=== PATIENT | female | born 1955 | race Two or more races ===

== ENCOUNTER 2018-08-26 13:05 | Emergency (ER) | payer OTHER ==
[2018-08-26 14:51] VITALS: BP 171/88
--- NOTE | 2018-08-26 15:10 | UC ---
Lower Extremity/Ankle HPI - HPI Summary HPI Summary: Patient fell and tripped injuring her left great toe, pain on the top of the toe , hard to bear weight or move the toe - History of Current Complaint Chief Complaint: UCLowerExtremity Stated Complaint: LEFT GREAT TOE INJURY Time Seen by Provider: 08/26/18 14:36 Hx Obtained From: Patient ?: No Onset/Duration: Sudden Onset, Lasting Days Severity Initially: Moderate Severity Currently: Moderate Pain Intensity: 4 Aggravating Factor(s): Standing, Ambulation Alleviating Factor(s): Rest - Allergies/Home Medications Allergies/Adverse Reactions: Allergies Allergy/AdvReac Type Severity Reaction Status Date / Time No Known Allergies Allergy Verified 08/26/18 14:46 Home Medications: Home Medications Cholecalciferol TAB* [Vitamin D TAB*] 1,000 unit PO DAILY 08/26/18 [History Confirmed 08/26/18] Cyanocobalamin TAB* [Vitamin B12 TAB*] 500 mcg PO DAILY 08/26/18 [History Confirmed 08/26/18] Ibuprofen TAB* [Advil TAB*] 200 mg PO Q6H PRN 08/26/18 [History Confirmed ] PMH/Surg Hx/FS Hx/Imm Hx Previously Healthy: Yes - Surgical History Surgical History: Yes Surgery Procedure, Year, and Place: ? Left or Right Bunionectomy, ~1988, [place]; [facility], 1984 1982 1980 - Family History Known Family History: Positive: Hypertension - Social History Alcohol Use: Occasionally Substance Use Type: None Smoking Status (MU): Former Smoker Length of Time of Smoking/Using Tobacco: 1/2 PPD x 40 Years When Did the Patient Quit Smoking/Using Tobacco: 2011 Review of Systems All Other Systems Reviewed And Are Negative: Yes Constitutional: Positive: Negative Skin: Positive: Negative Eyes: Positive: Negative ENT: Positive: Negative Respiratory: Positive: Negative Cardiovascular: Positive: Negative Gastrointestinal: Positive: Negative Genitourinary: Positive: Negative Motor: Positive: Negative Neurovascular: Positive: Negative Musculoskeletal: Positive: Arthralgia, Edema, Myalgia Neurological: Positive: Negative Psychological: Positive: Negative Is Patient Immunocompromised?: No Physical Exam Triage Information Reviewed: Yes Appearance: Well-Appearing, Well-Nourished, Pain Distress Vital Signs: Initial Vital Signs Temp 98.7 F 08/26/18 14:43 Pulse 72 08/26/18 14:43 Resp 18 08/26/18 14:43 BP 171/88 08/26/18 14:43 Pulse Ox 99 08/26/18 14:43 Vital Signs Reviewed: Yes Eye Exam: Normal ENT Exam: Normal Dental Exam: Normal Neck exam: Normal Respiratory Exam: Normal Cardiovascular Exam: Normal Abdominal Exam: Normal Bowel Sounds: Positive: Present Musculoskeletal: Positive: Strength Limited @, ROM Limited @ - in ext and flex of foot, Edema @ - mild edema of the toe Neurological Exam: Normal Psychological Exam: Normal Skin Exam: Normal Lower Extremity Course/Dx - Course Course Of Treatment: hx obtained, exam performed ,meds reviewed xray obtained positive non displaced fracture of the toe noted. post op shoe and crutches given, referral to Dr Esteban also recommended. - Differential Dx/Diagnosis Differential Diagnosis/HQI/PQRI: Contusion, Fracture (Closed), Sprain, Strain Provider Diagnosis: Nondisplaced fracture of great toe Discharge - Sign-Out/Discharge Documenting (check all that apply): Patient Departure All imaging exams completed and their final reports reviewed: Yes - Discharge Plan Condition: Stable Disposition: HOME Patient Education Materials: Toe Fracture (ED) Referrals: Jerry Jordan MD [Primary Care Provider] - Additional Instructions: 1. use the crutches and do not use the foot to propel [facility]. [facility] appointment with dr Esteban. 3. Use the post op shoe for support and protection. 4. Warm water soaks 5. ibuprofen for pain and fever. - Billing Disposition and Condition Condition: STABLE Disposition: Home
== END 2018-08-26 16:10 | disposition home or self-care (01) ==
LOC: UCCORT 13:05
DX: S92.405A Nondisplaced unspecified fracture of left great toe, initial encounter for closed fracture (principal); Z87.891 Personal history of nicotine dependence; W01.0XXA Fall on same level from slipping, tripping and stumbling without subsequent striking against object, initial encounter; Y92.9 Unspecified place or not applicable
CPT/HCPCS: 99213; G0463

== ENCOUNTER 2018-12-29 15:16 | Emergency (ER) | payer OTHER ==
--- OUTSIDE RECORDS SUMMARY | 2018-12-29 15:23 | XMS REPORT | Continuity of Care Document ---
:1955 External Reference #:[id number] Author Name CHASIDY Funk (transmitted by agent of provider Sue Lee) Address [address] [place] [address] Care Team Providers Name Role Phone Arvind Diaz MD - Internal Care Team Information Insurance Checker Medicine Jerry Jordan MD - Family Care Team Information Insurance Checker Medicine Problems Active Problems Provider Date Tobacco user Onset: 03/10/2011 Hyperlipidemia Onset: 03/10/2011 Depressive disorder Onset: 03/10/2011 Anxiety state Onset: 03/10/2011 Hearing loss Onset: 03/10/2011 Postmenopausal state Onset: 03/10/2011 Essential hypertension CHASIDY Funk Onset: 10/01/2018 Noncompliance with treatment CHASIDY Funk Onset: 10/01/2018 Social History Type Date Description Comments Sex Unknown ETOH Use Occasionally consumes alcohol Tobacco Use Start: Unknown End: Patient is a former smoker Unknown Recreational Drug Use Never Used Drugs Smoking Status Reviewed: 10/17/18 Patient is a former smoker Exercise Type/Frequency Exercises sporadically Allergies, Adverse Reactions, Alerts Description No Known Drug Allergies Medications Active Medications SIG Qnty Indications Ordering Provider Date Pravastatin Sodium one half tablet 15tabs Jerry 10/20/2018 10mg teja Jordan MD Tablets Zestoretic one pill daily 90tabs I10 09/26/2018 20-12.5mg MD Nikki Tablets Vitamin D-3 1 by mouth every 90caps Jerry 11/01/2017 1000Unit day MD Nikki Capsules Vitamin B-12 1 by mouth every 30tabs Jerry 11/01/2017 500mcg day MD Nikki Tablets History Medications Rosuvastatin Calcium take 1 tablet 90tabs E78.5 Jerry Jordan, 2018 - by mouth every MD 10/20/2018 10mg Tablets night at bedtime Immunizations CPT Code Status Date Vaccine Lot # [id number] Given 02/19/2009 Tdap - Tetanus/Diptheria/Acellular Pertussis Vital Signs Date Vital Result Comment 12/15/2018 7:58am Weight 152.19 lb BP Systolic Sitting 130 mmHg BP Diastolic Sitting 80 mmHg 10/13/2018 8:14am Weight 152.56 lb BP Systolic Sitting 110 mmHg BP Diastolic Sitting 60 mmHg Results Test Date Facility Test Result H/L Range Note Basic Metabolic 07/01/2018 [facility] Sodium 139 mmol/L Normal 135-145 [address] [place] [address] [phone] Potassium 4.5 mmol/L Normal 3.5-5.0 Chloride 106 mmol/L Normal 101-111 Co2 Carbon Dioxide 27 mmol/L Normal 22-32 Anion Gap 6 mmol/L Normal 2-11 Glucose 91 mg/dL Normal 70-100 Blood Urea Nitrogen 15 mg/dL Normal 6-24 Creatinine 0.68 mg/dL Normal 0.51-0.95 BUN/Creatinine Ratio 22.1 High 8-20 Calcium 9.3 mg/dL Normal 8.6-10.3 Egfr Non- 88.0 >60 Egfr 106.4 >60 1 Lipid Profile 07/01/2018 [facility] Triglycerides 123 mg/dL 2 (Trig/Chol/HDL) [address] [place] [address] [phone] Cholesterol 263 mg/dL 3 HDL Cholesterol 79.2 mg/dL 4 LDL Cholesterol 159 mg/dL 5 Liver Function 07/01/2018 [facility] Total Protein 6.5 g/dL Normal 6.4-8.9 [address] [place] [address] [phone] Albumin 4.1 g/dL Normal 3.2-5.2 Globulin 2.4 g/dL Normal 2-4 Albumin/Globulin Ratio 1.7 Normal 1-3 Total Bilirubin 0.30 mg/dL Normal 0.2-1.0 Direct Bilirubin 0.00 mg/dL Low 0.03-0.18 Alkaline Phosphatase 78 U/L Normal 34-104 Alt 20 U/L Normal 7-52 Ast 15 U/L Normal 13-39 1 Because ethnic data is not always readily available, this report includes an eGFR for both -Americans and non- Americans. The National Kidney Disease Education Program (NKDEP) does not endorse the use of the MDRD equation for patients that are not between the ages of 18 and 70, are , have extremes of body size, muscle mass, or nutritional status, or are non- or non-. According to the National Kidney Foundation, irrespective of diagnosis, the stage of the disease is based on the level of kidney function: Stage Description GFR(mL/min/1.73 m(2)) 1 Kidney damage with normal or decreased GFR 90 2 Kidney damage with mild decrease in GFR 60-89 3 Moderate decrease in GFR 30-59 4 Severe decrease in GFR 15-29 5 Kidney failure <15 (or dialysis) 2 Desirable: <150 Borderline High: 150-199 High: 200-499 Very High: >500 3 Desirable: <200 Borderline High: 200-239 High: >239 4 Low: <40 Desirable: 40-60 High: >60 5 Desirable: <100 Near Optimal: 100-129 Borderline High: 130-159 High: 160-189 Very High: >189 Procedures Date Code Description Status 09/26/2018 85825 EKG Tracing & Interpretation Completed 09/26/2018 55946 Rad Exam; Toes Completed 08/07/2018 [id number] Mammogram Completed 07/03/2016 [id number] Mammogram Completed 01/30/2014 [id number] Colonoscopy Completed 01/27/2014 [id number] Diabetic Retinal Eye Exam Completed Medical Devices Description No Information Available Encounters Type Date Location Provider Dx Diagnosis Office Visit 10/13/2018 [facility] CHASIDY Funk E78.5 Hyperlipidemia, 8:15a unspecified Office Visit 09/26/2018 [facility] CHASIDY Funk I10 Essential ( primary) 3:15p hypertension E78.5 Hyperlipidemia, unspecified Office Visit 09/26/2018 8:30a Orthopedic Geovani Amos S92.415D Nondisp fx of Services Of Jeremias Esteban MD prox phalanx of AT [place] l great toe, 7thD Office Visit 08/28/2018 10:15a Orthopedic Geovani Amos S92.415A Nondisp fx of Services Of [facility] MD Carlito proximal AT [place] phalanx of left great toe, init Office Visit 06/26/2018 3:30p [facility] CHASIDY Funk Z00.01 Encounter for general adult medical exam w abnormal findings Z12.31 Encntr screen mammogram for malignant neoplasm of breast E78.5 Hyperlipidemia, unspecified M54.5 Low back pain Z01.419 Encntr for nurse obgyn exam (general) (routine) w/o abn findings Assessments Date Code Description Provider 10/13/2018 E78.5 Hyperlipidemia, unspecified CHASIDY Funk 09/26/2018 I10 Essential (primary) hypertension CHASIDY Funk 09/26/2018 S92.415D Nondisplaced fracture of proximal phalanx of Geovani Esteban MD left great toe, 09/26/2018 E78.5 Hyperlipidemia, unspecified CHASIDY Funk 08/28/2018 S92.415A Nondisplaced fracture of proximal phalanx of Geovani Esteban MD left great toe, 06/26/2018 Z00.01 Encounter for general adult medical CHASIDY Funk examination with abnorma 06/26/2018 Z12.31 Encounter for screening mammogram for CHASIDY Funk malignant neoplasm of 06/26/2018 E78.5 Hyperlipidemia, unspecified CHASIDY Funk 06/26/2018 M54.5 Low back pain CHASIDY Funk 06/26/2018 Z01.419 Encntr for nurse obgyn exam (general) (routine) w/o CHASIDY Funk abn findings Plan of Treatment Future Appointment(s):03/19/2019 8:00 am - CHASIDY Funk at [facility] 3:30 pm - CHASIDY Funk at [facility] Functional Status Functional Condition Comment Date Status Trifocal Glasses Active Mental Status Description No Information Available Referrals Description No Information Available
[2018-12-29 16:04] VITALS: BP 139/64
--- NOTE | 2018-12-29 16:27 | UC ---
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 Now the toe is red, swollen, and painful." -sx at toenail and mostly at distal toe. thinks it is an ingrown toenail. very sensitive. no dc. - History of Current Complaint Chief Complaint: UCSkin Stated Complaint: LEFT BIG TOE CONCERN Time Seen by Provider: 12/29/18 16:12 Pain Intensity: 6 - Allergies/Home Medications Allergies/Adverse Reactions: Allergies Allergy/AdvReac Type Severity Reaction Status Date / Time No Known Allergies Allergy Verified 12/29/18 16:05 Home Medications: Home Medications Lisinopril/HCTZ 10/12.5(NF) [Zestoretic 10/12.5(NF)] 1 tab PO DAILY 12/29/18 [ History Confirmed 12/29/18] Simvastatin [Zocor 5 MG-] 5 mg PO DAILY 12/29/18 [History Confirmed 12/29/18] PMH/Surg Hx/FS Hx/Imm Hx Previously Healthy: Yes Cardiovascular History: Hypertension - Surgical History Surgical History: Yes Surgery Procedure, Year, and Place: ? Left or Right Bunionectomy, ~1988[place], [place]; [facility], 1984 1981 1980 - Family History Known Family History: Positive: Hypertension - Social History Alcohol Use: Occasionally Substance Use Type: None Smoking Status (MU): Former Smoker Length of Time of Smoking/Using Tobacco: 1/2 PPD x 40 Years When Did the Patient Quit Smoking/Using Tobacco: 2011 Review of Systems All Other Systems Reviewed And Are Negative: Yes Constitutional: Positive: Negative. Negative: Fever, Chills, Fatigue Skin: Positive: Other ENT: Positive: Negative Respiratory: Positive: Negative Cardiovascular: Positive: Negative Gastrointestinal: Positive: Negative. Negative: Vomiting, Diarrhea, Nausea Genitourinary: Positive: Negative Motor: Positive: Negative Neurovascular: Positive: Negative Musculoskeletal: Positive: Negative Neurological: Positive: Negative Psychological: Positive: Negative Is Patient Immunocompromised?: No Physical Exam Triage Information Reviewed: Yes Appearance: Well-Appearing, No Pain Distress, Well-Nourished - very pleasant Vital Signs: Initial Vital Signs Temp 98.3 F 12/29/18 16:00 Pulse 75 12/29/18 16:00 Resp 16 12/29/18 16:00 BP 139/64 12/29/18 16:00 Pulse Ox 100 12/29/18 16:00 Eye Exam: Normal ENT Exam: Normal Neck exam: Normal Respiratory Exam: Normal Respiratory: Positive: Lungs clear Cardiovascular Exam: Normal Cardiovascular: Positive: RRR Abdominal Exam: Normal Musculoskeletal Exam: Normal Neurological Exam: Normal Psychological Exam: Normal Skin: Positive: Other - left distal great toe w/ mild erythema, + tedner, small area of ingrown toenail.lateral proximal nail w/ mild erythema. not hot. + tender. no swelling Lower Extremity Course/Dx - Course Course Of Treatment: Left great toenail cellulitis/small ingorwn toenail. -keflex 500mgs TID x 10 d. probiotic - Differential Dx/Diagnosis Differential Diagnosis/HQI/PQRI: Gout, Infection Provider Diagnosis: Ingrown nail of great toe of left foot Discharge ED - Sign-Out/Discharge Documenting (check all that apply): Patient Departure All imaging exams completed and their final reports reviewed: No Studies - Discharge Plan Condition: Stable Disposition: HOME Prescriptions: Cephalexin CAP* [Keflex CAP*] 500 mg PO TID #30 cap Patient Education Materials: Ingrown Nail (ED) Referrals: Jerry Jordan MD [Primary Care Provider] - 5 Days Additional Instructions: Make sure to take a probiotic daily while on antibiotics to help prevent a potential complication of antibiotic use called c diff. Some well known brands that can be found OTC are florastor, align and FlixChip. Make sure to complete the entire prescription unless advised otherwise by your health care provider. - Billing Disposition and Condition Condition: STABLE Disposition: Home
== END 2018-12-29 16:41 | disposition home or self-care (01) ==
LOC: UCCORT 15:16
DX: L60.0 Ingrowing nail (principal); I10 Essential (primary) hypertension; Z87.891 Personal history of nicotine dependence
CPT/HCPCS: 99212; G0463